=== PATIENT | female | born 2000 | race Caucasian/White ===

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

== ENCOUNTER → 2019-09-12 | Outpatient (CLI) | payer BC ==
--- NOTE | 2019-09-12 08:35 | RAD ---
Chest radiograph 09/12/2019 8:13 AM INDICATION: Cough and congestion for several weeks COMPARISON: None available TECHNIQUE: Frontal and lateral views of the chest are provided. FINDINGS: The cardiomediastinal silhouette is within normal limits. There are no pleural effusions. There is no pulmonary vascular congestion. There is no pneumothorax. Mild perihilar interstitial changes are present. No significant osseous abnormality is identified. IMPRESSION: Mild perihilar interstitial changes may be associated with interstitial pneumonitis or bronchitis. One month follow-up chest radiograph may be of benefit to ensure resolution. Electronically signed by: Kristin Charles MD (09/12/2019 8:32 AM) [id number]
== END | disposition home or self-care (01) ==
LOC: PMG 08:03
PROVIDERS: ATTEND Physician Assistant Medical
DX: J84.89 Other specified interstitial pulmonary diseases (principal)
CPT/HCPCS: 71046